=== PATIENT | female | born 1965 | race Caucasian/White ===

== ENCOUNTER → 2018-05-20 18:01 | Outpatient (CLI) | payer BC ==
[2015-05-26 12:12] VITALS: BMI 22.3
[~2018-05-20 18:01] MED LIST: ACETAMINOPHEN500 M1 PO; BENADRYL25 MG PO; CIMETIDINE200 MG PO; ESTER-C 500 MG1 TAB PO; ESTRACE 0.5 MG0.5 MG PO; ESTROVEN PO; FEXOFENADINE H180 MG PO; HYDROCODONE-APA1 TAB PO; IBUPROFEN800 MG PO; MAG-OX 400 MG400 MG PO; POTASSIUM99 M1 PO; SOMA350 MG PO; SYNTHROID50 MCG PO; VALIUM5 MG PO; VITAMIN A10000 UNIT PO; VITAMIN B-121000 MCG PO; VITAMIN B650 MG PO; VITAMIN D5000 UNIT PO; ZINC50 MG PO; ZOFRAN4 MG PO
== END | disposition home or self-care (01) ==
LOC: D.MAMMO 16:15
DX: Z12.31 Encounter for screening mammogram for malignant neoplasm of breast (principal)